=== PATIENT | female | born 1950 | race Caucasian/White ===

== ENCOUNTER 2017-06-27 02:36 | Emergency (ER) | payer MEDICARE, OTHER ==
[2017-06-27 03:26] VITALS: BP 120/80; PULSE 63; RESP 18; TEMP 98.5; O2SAT 95
[2017-06-27 03:47] LABS: BASOPHILS % (AUTO) 2 % (0-3); EOSINOPHILS % (AUTO) 4 % (0-9); HEMATOCRIT 43 % (35-47); MEAN CORPUSCULAR HGB CONC 35.2 gm/dl (32.0-36.0); MONOCYTES % (AUTO) 5.4 % (0-12); NEUTROPHILS % (AUTO) 51.8 % (37-80)
[2017-06-27 03:51] LABS: MEAN CORPUSCULAR VOLUME 101 fL (81-99)
[2017-06-27 03:53] LABS: APPEARANCE,URINE Clear; BILIRUBIN,URINE NEGATIVE (NEGATIVE); GLUCOSE, URINE (UA) NEGATIVE (NEGATIVE); KETONES,URINE NEGATIVE (NEGATIVE); LEUKOCYTE ESTERASE ,URINE NEGATIVE (NEGATIVE); NITRATE,URINE NEGATIVE (NEGATIVE); OCCULT BLOOD,URINE NEGATIVE (NEG-TRACE); UROBILINOGEN,URINE 0.2 (0.2-1.0 EU)
[2017-06-27 03:57] LABS: AMPHETAMINES NEGATIVE (NEGATIVE); COLOR,URINE YELLOW; METHADONE NEGATIVE (NEGATIVE); OPIATES(OP13) NEGATIVE (NEGATIVE); OXYCODONE(OXY) NEGATIVE (NEGATIVE); PROPOXYPHENE(PPX) NEGATIVE (NEGATIVE); RBC,URINE 0-2 (0-3AV/HPF); TRICYCLIC ANTIDEPRESSANTS NEGATIVE (NEGATIVE); WBC,URINE 0-2 (0-5AV/HPF)
[2017-06-27 04:00] LABS: NORMAL RBCS PRESENT
[2017-06-27 04:05] LABS: ALBUMIN 3.7 gm/dl (3.4-5.0); ALT 9 IU/L (14-63); CALCIUM 9.3 mg/dl (8.5-10.1); GLOM FILT RATE 64 mL/min (>60); POTASSIUM 4.3 mMol/L (3.5-5.1); SODIUM 138 mMol/L (136-145); THYROID STIMULATING HORMONE 2.758 uIU/ml (0.358-3.740)
== END 2017-06-27 04:40 | disposition home or self-care (01) | DRG 885 ==
LOC: ED 02:36
DX: F22 Delusional disorders (principal); R45.851 Suicidal ideations; F19.20 Other psychoactive substance dependence, uncomplicated; Z59.0 Homelessness; R79.89 Other specified abnormal findings of blood chemistry
CPT/HCPCS: 36415; 80053; 80305; 80307; 81001; 84443; 85025; 99283

== ENCOUNTER 2017-10-01 17:37 | Emergency (ER) | payer MEDICARE, BC ==
[2017-10-01] MEDS ORDERED: TDAP VACCINE 0.5 ML SUS IM ONE ×2 (17:43→17:57)
[2017-10-01 17:45] VITALS: RESP 20
[2017-10-01] MEDS ORDERED: DOXYCYCLINE 100 MG TAB PO SCH (17:45)
[2017-10-01] MEDS ORDERED: DOXYCYCLINE 100 MG TAB ONE (17:58)
[2017-10-01 18:06] VITALS: BP 95/49; PULSE 74; TEMP 97.3; O2SAT 97
== END 2017-10-01 18:21 | disposition home or self-care (01) | DRG 605 ==
LOC: ED 17:37
DX: S61.254A Open bite of right ring finger without damage to nail, initial encounter (principal); I80.8 Phlebitis and thrombophlebitis of other sites; Z23 Encounter for immunization
CPT/HCPCS: 90471; 90715; 99282; 99283

== ENCOUNTER 2017-12-08 20:05 | Emergency (ER) | payer MEDICARE, BC ==
[2017-12-08] MEDS ORDERED: ALUMINUM/MAGNESIUM 30 ML SUS ONE (20:40)
[2017-12-08 20:42] VITALS: RESP 20; TEMP 96.8
[2017-12-08 20:47] LABS: HEMATOCRIT 39 % (35-47); MEAN CORPUSCULAR HGB CONC 33.6 gm/dl (32.0-36.0)
[2017-12-08] MEDS ORDERED: ALUMINUM/MAGNESIUM 30 ML SUS PO ONE (20:50)
[2017-12-08 20:52] LABS: MEAN CORPUSCULAR VOLUME 100 fL (81-99)
[2017-12-08 20:58] VITALS: BP 132/78; PULSE 72; O2SAT 95
[2017-12-08 21:06] LABS: ALBUMIN 3.4 gm/dl (3.4-5.0); ALT 37 IU/L (14-63); CALCIUM 8.2 mg/dl (8.5-10.1); GLOM FILT RATE 45 mL/min (>60); MAGNESIUM 1.9 mg/dl (1.8-2.4); POTASSIUM 4.3 mMol/L (3.5-5.1); SALICYLATE < 2.8 mg/dl (2.8-30.0); SODIUM 141 mMol/L (136-145); THYROID STIMULATING HORMONE 2.032 uIU/ml (0.358-3.740)
[2017-12-08 21:08] LABS: APPEARANCE,URINE Cloudy; BILIRUBIN,URINE NEGATIVE (NEGATIVE); COLOR,URINE Yellow; GLUCOSE, URINE (UA) NEGATIVE (NEGATIVE); KETONES,URINE TRACE (NEGATIVE); LEUKOCYTE ESTERASE ,URINE 3+ (NEGATIVE); NITRATE,URINE POSITIVE (NEGATIVE); OCCULT BLOOD,URINE TRACE INTACT (NEG-TRACE); PH,URINE 6.5; UROBILINOGEN,URINE 0.2 (0.2-1.0 EU)
[2017-12-08 21:25] LABS: RBC,URINE 0-2 (0-3AV/HPF); TRICYCLIC ANTIDEPRESSANTS NEGATIVE (NEGATIVE)
[2017-12-08 21:26] LABS: AMPHETAMINES NEGATIVE (NEGATIVE); METHADONE NEGATIVE (NEGATIVE); OPIATES(OP13) NEGATIVE (NEGATIVE); OXYCODONE(OXY) NEGATIVE (NEGATIVE); PROPOXYPHENE(PPX) NEGATIVE (NEGATIVE)
[2017-12-08 21:38] LABS: ANISOCYTOSIS SLIGHT; BASOPHILS % (MANUAL) 1 % (0-3); EOSINOPHILS % (MANUAL) 1 % (0-9); LYMPHOCYTES % (MANUAL) 20 % (10-50)
[2017-12-08] MEDS ORDERED: CIPROFLOXACIN HCL 500 MG TAB PO ONE ×2 (22:55→23:19)
[2017-12-08] MEDS ORDERED: ACETAMINOPHEN 325 MG ONE (23:26)
[2017-12-08] MEDS ORDERED: ACETAMINOPHEN 325 MG PO ONE (23:29)
[2017-12-08] MEDS ORDERED: LORAZEPAM 0.5 MG TAB ONE (23:45)
[2017-12-09] MEDS ORDERED: LORAZEPAM 0.5 MG TAB PO ONE (00:06)
== END 2017-12-09 00:45 | disposition short-term general hospital (02) | DRG 880 ==
LOC: ED 20:05
DX: R45.851 Suicidal ideations (principal); N30.00 Acute cystitis without hematuria; F32.9 Major depressive disorder, single episode, unspecified
CPT/HCPCS: 36415; 80053; 80305; 80307; 81001; 83735; 84443; 85007; 85027; 87077; 87088; 87186; 99284; A9270-GY

== ENCOUNTER 2019-02-25 13:35 | Outpatient (CLI) | payer MEDICARE, BC ==
[2017-12-08 20:58] VITALS: O2SAT 95
== END 2019-02-25 13:36 | disposition home or self-care (01) | DRG 554 ==
LOC: CONVCARE 13:35
PROVIDERS: ATTEND Orthopaedic Surgery
DX: M19.071 Primary osteoarthritis, right ankle and foot (principal); M17.0 Bilateral primary osteoarthritis of knee
CPT/HCPCS: 73560; 73565; 73610; 73630

== ENCOUNTER 2019-03-03 18:38 | Emergency (ER) | payer MEDICARE, BC ==
[2019-03-03 19:20] LABS: CALCIUM 8.4 mg/dl (8.5-10.1); CARBON DIOXIDE 26.5 mEq/L (21-32); CREATININE 0.9 mg/dl (0.60-1.00); MAGNESIUM 1.8 mg/dl (1.8-2.4); POTASSIUM 3.9 mMol/L (3.5-5.1)
[2019-03-03 19:30] VITALS: RESP 18; TEMP 98.2; O2SAT 93
[2019-03-03] MEDS ORDERED: FLEET ENEMA PR PRN (19:51)
[2019-03-03 20:32] VITALS: PULSE 92
[2019-03-03 20:37] VITALS: BP 149/81
== END 2019-03-03 20:46 | disposition home or self-care (01) | DRG 392 ==
LOC: ED 18:38
DX: K59.00 Constipation, unspecified (principal); E11.9 Type 2 diabetes mellitus without complications
CPT/HCPCS: 36415; 74019; 80048; 83735; 84100; 99282; 99283